=== PATIENT | female | born 1965 | race Caucasian/White ===

== ENCOUNTER → 2020-03-25 | Day surgery (SDC) | payer MEDICARE, OTHER ==
[~2020-03-25] MED LIST: ALENDRONATE SOD70 MG PO; AUGMENTIN250 MG PO; CYMBALTA60 MG PO; DAILY MULTIPLE1 EAC1 PO; DULOXETINE HCL60 MG PO; GABAPENTIN600 MG PO; LACTINEX1 EACH PO; MELOXICAM15 MG PO; MOBIC15 MG PO; NORCO 5-325 TA1 EAC1 PO; NORCO 5-325 TA1 EACH PO; NORCO 5/3251 EACH PO; OMEPRAZOLE40 MG PO; VITAMIN B125000 MCG PO
[2020-03-25 08:16] LABS: HCT 40.4 % (37.0-47.0); HGB 13.2 g/dl (12.5-16.0); MCH 30.7 pg (25.0-31.0); MCHC 32.7 g/dL (32.0-36.0); MPV 9.6 fL (6.0-9.5); RBC 4.3 M/uL (4.20-5.40); RDW 12.7 % (11.5-14.0); WBC 7.6 K/uL (4.0-10.5)
[2020-03-25 08:36] LABS: ALBUMIN 4.1 g/dL (3.4-5.0); BILIRUBIN - TOTAL 0.4 mg/dL (0.2-1.0); BUN/CREAT RATIO (CALC) 24.2 RATIO; CREATININE 0.91 mg/dL (0.51-0.95); GLOBULIN (CALCULATION) 3.7 g/dL; POTASSIUM 4.1 mmol/L (3.5-5.1); TOTAL PROTEIN 7.8 g/dL (6.4-8.2)
== END | disposition home or self-care (01) ==
LOC: FAS 07:38
PROVIDERS: Surgery
DX: Z12.11 Encounter for screening for malignant neoplasm of colon (principal); K44.9 Diaphragmatic hernia without obstruction or gangrene; K25.9 Gastric ulcer, unspecified as acute or chronic, without hemorrhage or perforation; K29.60 Other gastritis without bleeding; K31.89 Other diseases of stomach and duodenum; I10 Essential (primary) hypertension; E66.9 Obesity, unspecified; M85.80 Other specified disorders of bone density and structure, unspecified site; F32.9 Major depressive disorder, single episode, unspecified; Z20.822 Contact with and (suspected) exposure to COVID-19; Z68.30 Body mass index [BMI] 30.0-30.9, adult; Z79.899 Other long term (current) drug therapy
CPT/HCPCS: 43239; G0121; 36415; 80053; 88305; J2250; J2704; J7120; U0002